=== PATIENT | female | born 1955 ===

== ENCOUNTER 2022-01-27 16:27 | Outpatient (REF) | payer MEDICARE, BC, SELFPAY ==
[2022-01-27 20:41] LABS: HGB 13.8 g/dL (11.2-15.7); MCH 32.5 pg (27.0-33.0); MCHC 33.7 % (32.0-36.0); MCV 97 fL (80-95); MPV 9.2 fL (8.0-11.0); Platelet Count 309 10^3/uL (130-400); RBC 4.24 10^6/uL (3.93-5.22); RDW 12.7 % (11.7-14.6); RDW-SD 45.4 fL; WBC 6.86 10^3/uL (4.4-10.8)
[2022-01-27 21:01] LABS: ALT 25 U/L (14-59); AST 17 U/L (15-37); Albumin 3.8 g/dL (3.4-5.0); Alkaline Phosphatase 53 U/L (46-116); Anion Gap 5.4 mmol/L (3-11); BUN 17 mg/dL (7-18); Bilirubin, Total 0.2 mg/dL (0.2-1.0); CO2 31.6 mmol/L (21.0-32.0); CREATININE 0.7 mg/dL (0.55-1.02); Calcium 9.3 mg/dL (8.5-10.1); Chloride 104 mmol/L (98-107); Glucose 102 mg/dL (74-106); Potassium 3.9 mmol/L (3.5-5.1); Sodium 141 mmol/L (136-145); TSH (W/Ref FT4) 0.99 uIU/mL (0.36-3.74); Total Protein 6.6 g/dL (6.4-8.2)
== END 2022-01-27 16:28 | disposition home or self-care (01) ==
LOC: NCHCN 16:27
PROVIDERS: Visit Provider Family Medicine
DX: R19.7 Diarrhea, unspecified (principal); R53.83 Other fatigue
CPT/HCPCS: 80053; 85027; 84443

== ENCOUNTER 2022-02-16 14:10 | Outpatient (REF) | payer MEDICARE, BC, SELFPAY | END 2022-02-16 14:11 | disposition home or self-care (01) | LOC: NCHCN 14:10 | PROVIDERS: Visit Provider Family Medicine | DX: R05.8 Other specified cough (principal) | CPT/HCPCS: 87070; 87205 ==

== ENCOUNTER 2022-02-16 14:26 | Outpatient (REF) | payer MEDICARE, BC, SELFPAY | END 2022-02-16 14:27 | disposition home or self-care (01) | LOC: NCHCN 14:26 | PROVIDERS: Visit Provider Family Medicine ==